=== PATIENT | female | born 1980 ===

== ENCOUNTER → 2020-08-13 | Outpatient (REF) ==
--- NOTE | 2020-08-13 12:16 | REPPI ---
INDICATION: BACK PAIN. COMPARISON: None. TECHNIQUE: Three views of the lumbar spine are provided. FINDINGS: Lumbar vertebral body heights are preserved. Alignment is normal on the lateral view. There is no evidence of spondylolysis or spondylolisthesis. A minimal levoconvex curve is seen on the AP view. Psoas margins are symmetric. Sacrum and SI joints are intact. Disc spaces are maintained. There are surgical clips in the left upper quadrant of the abdomen. IMPRESSION: Minimal levoconvex curvature. Otherwise negative lumbar spine radiographs. <Electronically signed by Natan Bee > 08/13/20 [id number]
== END ==
LOC: M PLAIMG 10:50
PROVIDERS: ATTEND Internal Medicine
DX: M54.5 Low back pain (principal)